=== PATIENT | female | born 1960 | race Caucasian/White ===

== ENCOUNTER → 2016-11-23 | Outpatient (CLI) | payer BC ==
--- NOTE | 2016-11-26 08:36 | MM ---
Reason for exam: screening (asymptomatic). Last mammogram was performed 1 year and 2 months ago. History: Patient is postmenopausal. Taking progesterone for 2 years. Physical Findings: A clinical breast exam by your physician is recommended on an annual basis and results should be correlated with mammographic findings. MG Screening Mammo w CAD Bilateral CC and MLO view(s) were taken. Prior study comparison: September 15, 2015, bilateral MG screening mammo w CAD. March 12, 2014, bilateral MG screening mammo w CAD. There are scattered fibroglandular densities. Finding: There are typically benign round, diffuse and grouped calcifications in both breasts. There is a chronic nodularity bilaterally. There is no discrete abnormality. ASSESSMENT: Benign, BI-RAD 2 RECOMMENDATION: Routine screening mammogram of both breasts in 1 year.
== END | disposition home or self-care (01) ==
LOC: RADMAMWWP 08:01
PROVIDERS: ATTEND Obstetrics & Gynecology
DX: Z12.31 Encounter for screening mammogram for malignant neoplasm of breast (principal)

== ENCOUNTER → 2018-01-17 | Outpatient (CLI) | payer BC ==
--- NOTE | 2018-01-20 14:53 | MM ---
Reason for exam: screening (asymptomatic). Last mammogram was performed 1 year and 2 months ago. History: Patient is postmenopausal. Taking progesterone for 2 years. Physical Findings: A clinical breast exam by your physician is recommended on an annual basis and results should be correlated with mammographic findings. MG Screening Mammo w CAD Bilateral CC and MLO view(s) were taken. Prior study comparison: November 23, 2016, bilateral MG screening mammo w CAD. September 15, 2015, bilateral MG screening mammo w CAD. The breast tissue is heterogeneously dense. This may lower the sensitivity of mammography. There is chronic nodularity bilaterally. Focal asymmetry left upper outer quadrant is stable. No significant changes when compared with prior studies. ASSESSMENT: Benign, BI-RAD 2 RECOMMENDATION: Routine screening mammogram of both breasts in 1 year.
== END | disposition home or self-care (01) ==
LOC: RADMAMWWP 07:44
PROVIDERS: ATTEND Obstetrics & Gynecology
DX: Z12.31 Encounter for screening mammogram for malignant neoplasm of breast (principal)
CPT/HCPCS: 77067

== ENCOUNTER → 2019-01-19 | Outpatient (CLI) | payer BC ==
--- NOTE | 2019-01-19 14:31 | MM ---
Reason for exam: screening (asymptomatic). Last mammogram was performed 1 year ago. History: Patient is postmenopausal. Taking progesterone for 2 years. Physical Findings: A clinical breast exam by your physician is recommended on an annual basis and results should be correlated with mammographic findings. MG 3D Screening Mammo W/Cad Bilateral CC and MLO view(s) were taken. Prior study comparison: January 17, 2018, bilateral MG screening mammo w CAD. November 23, 2016, bilateral MG screening mammo w CAD. There are scattered fibroglandular densities. There is chronic nodularity bilaterally. Stable upper outer quadrant focal asymmetry on the left. ASSESSMENT: Benign, BI-RAD 2 RECOMMENDATION: Routine screening mammogram of both breasts in 1 year.
== END | disposition home or self-care (01) ==
LOC: RADMAMWWP 07:51
PROVIDERS: ATTEND Obstetrics & Gynecology
DX: Z12.31 Encounter for screening mammogram for malignant neoplasm of breast (principal)
CPT/HCPCS: 77063; 77067

== ENCOUNTER → 2019-02-10 | Outpatient (CLI) | payer SELFPAY | END | disposition home or self-care (01) | LOC: LABWHC1 07:39 | PROVIDERS: ATTEND Pathology Anatomic Pathology & Clinical Pathology | DX: Z53.9 Procedure and treatment not carried out, unspecified reason (principal) | CPT/HCPCS: 36415 ==

== ENCOUNTER 2019-04-30 07:59 | Day surgery (SDC) | payer BC ==
[2019-04-27 12:07] VITALS: BMI 28.6
[~2019-04-30 07:59] MED LIST: DEXAMETHASONE SOD PHOSPHATE 10 MG/ML 1 ML VIAL IV ONE; HYDROmorphone 0.5 MG/0.5 ML SYRINGE IVP PRN; LACTATED RINGERS 1,000 ML IV SCH; LIDOCAINE 1% 20 ML VIAL (10MG/ML) FOR IV START INTRADERMA PRN; ONDANSETRON 4 MG/2 ML VIAL IVP ONE; Pre Op ABX Message 1 EACH MISC MISCELLANE ONE; SCOPOLAMINE 1.5MG/72HR PATCH TRANSDERM ONE
[2019-04-30] MEDS ORDERED: MIDAZOLAM PF (FBP) 2 MG/2 ML VIAL IVP ONE (09:06)
[2019-04-30] MEDS ORDERED: fentaNYL (PF) 50 MCG/ML 2 ML AMP IVP ONE (09:07)
--- NOTE | 2019-04-30 10:01 | P.ANPRN ---
Procedure Note - Anesthesia - Nerve Block Performed Right Saphenous/Obturator Single Date of Procedure: 04/30/19 Procedure Start Time: 09:05 Procedure Stop Time: 09:15 Location of Patient Procedure: PreOp Indication: Acute Post-Operative Pain Specifically requested for management of pain by DrAddison: Vitor Gilmore Sedation Type: Sedate with meaningful contact maintained Preparation: Sterile Prep Position: Supine Catheter: None Needle Gauge: 20 Ultrasound used to visualize needle placement: Yes Ultrasound used to observe medication spread: Yes Injectate: Other (see comment) (0.25% ropivacaine/0.5% lidocaine 20 mL) Adjunct: Epinephrine (see comment for dilution ratio) (1:200,000) Blood Aspirated: No Pain Paresthesia on Injection Noted: No Resistance on Injection: Normal Image Stored and Saved: Yes Events: Uneventful and Well Tolerated
--- NOTE | 2019-04-30 10:02 | P.ANPRN ---
Procedure Note - Anesthesia - Nerve Block Performed Right Popliteal Single Time Out Performed: Yes Date of Procedure: 04/30/19 Procedure Start Time: 09:05 Procedure Stop Time: 09:15 Location of Patient Procedure: PreOp Indication: Acute Post-Operative Pain Specifically requested for management of pain by DrAddison: Vitor Gilmore Sedation Type: Sedate with meaningful contact maintained Preparation: Sterile Prep Position: Left Lateral Catheter: None Needle Types: Pajunk Needle Gauge: 21 Ultrasound used to visualize needle placement: Yes Ultrasound used to observe medication spread: Yes Injectate: Other (see comment) (0.25% ropivacaine/0.5% lidocaine 20 mL) Adjunct: Epinephrine (see comment for dilution ratio) (1:200,000) Blood Aspirated: No Pain Paresthesia on Injection Noted: No Resistance on Injection: Normal Image Stored and Saved: Yes Events: Uneventful and Well Tolerated
[2019-04-30] MEDS ORDERED: SUCCINYLCHOLINE CHLORIDE 100 MG/5 ML SYR IV ONE (11:08)
[2019-04-30] MEDS ORDERED: PHENYLEPHRINE-0.9% NACL SYG 1 MG/10 ML SYRINGE ONE (11:08)
[2019-04-30] MEDS ORDERED: LIDOCAINE 1% INJ 10MG/ML (20 ML MDV) ONE (11:08)
[2019-04-30] MEDS ORDERED: PROPOFOL 10 MG/ML 20 ML VIAL IV ONE (11:08)
[2019-04-30] MEDS ORDERED: LIDOCAINE 2%-EPI 1:100,000 20 ML VIAL ONE (11:08)
[2019-04-30] MEDS ORDERED: MIDAZOLAM 2 MG/2 ML VIAL ONE (11:08)
[2019-04-30] MEDS ORDERED: ROPIVACAINE 5 MG/ML 30 ML VIAL ONE (11:08)
[2019-04-30] MEDS ORDERED: fentaNYL (PF) 50 MCG/ML 2 ML AMP ONE (11:08)
[2019-04-30] MEDS ORDERED: LACTATED RINGERS 1,000 ML IV ONE (13:28)
--- NOTE | 2019-04-30 14:05 | P.OP ---
Date of Procedure: 04/30/19 Preoperative Diagnosis: 1. Right hypermobile hallux valgus 2. Right hallux valgus interphalangeus Postoperative Diagnosis: Same Procedure(s) Performed: 1. Right triplanar first tarsometatarsal arthrodesis for correction of first ray instability 2. Correction of right hallux valgus with modified Zapata 3. Correction of right hallux valgus interphalangeus with Lionel osteotomy 4. Application of short leg splint by physician, right leg Anesthesia: SYLVIEA Surgeon: Vitor Gilmore Orthopedic Shoe Maker #1: Juli Goldberg Estimated Blood Loss (ml): 15 IV fluids (ml): 1,500 Pathology: none sent Condition: stable Disposition: PACU Indications for Procedure: The patient is very pleasant. His healthy 58-year-old female who presented to my office with a symptomatic right hallux valgus that had failed over 6 months of nonsurgical treatment. She came requesting surgery. After reviewing her physical exam and imaging my recommendation was to correct her hallux valgus with a modified Lapidus type procedure and Lionel osteotomy. We discussed the potential risks and complications of surgery including but not limited to risk of anesthesia, superficial infection, deep infection, delayed wound healing, superficial wound necrosis, deep wound necrosis, nonunion of the fusion site, malunion to the fusion site, over correction of the deformity, under correction of the deformity, recurrence, DVT, PE, other medical complications, generalized to satisfaction with surgery, need for further surgery, somatic hardware, and possibly loss of life or limb. The patient voiced understanding of these potential complications and provided her verbal and written consent to go forward with surgery. Description of Procedure: The patient was then verified and prepped with holding and the right leg was marked with my initials. I reviewed the consent form with the patient and her . All of their questions were answered. The patient was then given a block by anesthesia. She was brought back to the operating room. She was positioned on the OR table where general anesthetic and preoperative antibiotics were given. A bump was placed on the right buttock. The left leg was secured to the table with foam and tape. The right leg was then prepped and draped in the standard sterile fashion. Prior to starting surgery timeout was performed identifying the correct patient, operative extremity, and procedure. The patient's leg was then elevated, exsanguinated with an Esmarch bandage, and the tourniquet was inflated to 250 mmHg. I began by outlining a straight longitudinal incision starting at the proximal pole of the medial cuneiform and extending to the midshaft of the first metatarsal. Skin incision was made with a scalpel. Dissection was carried down carefully to the subcutaneous tissue with tenotomy scissors. The EHL tendon sheath was incised and the tendon was retracted laterally. The dorsal and medial capsule of the first tarsometatarsal joint was elevated. A saw was used to plane the first metatarsal base to allow for rotation. The capsule was reduced plantarly with an osteotome. A joystick K wire was placed in the 2 o'clock position 1 cm distal to the joint. Attention was then turned to the first webspace. A longitudinal incision was made and dissection was carried down carefully to the subcu tissue. The lateral capsule and sesamoid suspensory ligament were sharply released. A varus force was applied to the toe. Fluoroscopy was then brought in and I verified that the intermetatarsal angle could be closed down and the sesamoids covered by the metatarsal head with rotation of the joystick pin and gentle pressure distally on the first metatarsal. I then placed a 2.5 mm fulcrum at the lateral base the first metatarsal. A stab incision was made over the midshaft of the second metatarsal. The positioner was placed with 1 glen over the lateral cortex of the second metatarsal and the other glen over the medial border of the first metatarsal. An marketing operations assistant rotated the joystick pin and I gently tightened the positioner. Clinically the toe straightened. Fluoroscopy was used to verify that the intermetatarsal angle had been corrected. A K wire was placed through the positioner holding the reduction. A joint seeker was placed as far laterally as possible tarsometatarsal joint. The joint seeker "made a corner" with the fulcrum. A low angle cut guide was placed over the joint seeker and its position was verified with fluoroscopy. Bicortical pins were placed proximally and distally. An oblique pin was placed through the medial cuneiform. The joint seeker was removed and fluoroscopy was used to take a picture "down the gunsight" verifying flat cut off the first metatarsal base and a cut of the medial cuneiform her all to the second tarsometatarsal joint. Once I was happy with the position of the cut guide a microsagittal saw was used to make the cuts at the first metatarsal base and medial cuneiform. The bone was removed. The wound was thoroughly irrigated. Both cuts appeared flat. The cut surfaces the bone were perforated with a 20 drill bit. The compression device was then gently tightened. A 1 mm bumper was placed laterally as the joint was compressed. Clinically the joint appeared to be completely compressed and I was not able to place a [place] and the cut surfaces of the bone. An oblique olive tipped K wire was placed laterally across the joint. I then placed the medial plate. The compression device was then removed and the dorsal plate was placed as far laterally as possible. Attention was then turned distally. On inspection the patient's big toe was still touching the second toe. X-rays showed reduction of the intermetatarsal space but continued deformity due to hallux valgus interphalangeus. A longitud inal incision was made centered over the medial eminence the first MTP joint. The capsule was incised. Conservative medial eminence resection was performed taking care to stay medial to the sulcus. A K wire was placed through the base of the proximal phalanx parallel and distal to the joint. The joint was assessed verifying that the K wire was not intra-articular. A microsagittal saw was then used to create a transverse cut just distal to the K wire taking care to leave the lateral cortex intact. An oblique cut was then made distally creating a closing wedge. The osteotomy was closed, pinned, and secured with a cannulated 2.5 mm headless compression screw which generated excellent purchase. Clinically the toe appeared straight. Final fluoroscopic images were taken. The AP view showed reduction of the intermetatarsal angle, correction of the sesamoids, and correction of the hallux valgus interphalangeus. Both wounds were thoroughly irrigated and closed in layers. A sterile dressing was applied. The drapes were taken down and a well-padded bulky Gillis splint was placed with the ankle at neutral. The patient was awoken from her anesthetic transferred from the OR table and brought to recovery entire procedure well. Juli Chun PA-C was required as a skilled marketing operations assistant for patient positioning, surgical exposure, retraction, closure of wounds, application of splint.
[2019-04-30 14:09] VITALS: RESP 16; TEMP 97
--- NOTE | 2019-04-30 14:11 | FL ---
EXAMINATION TYPE: FL guidance operating room, XR foot limited RT DATE OF EXAM: 04/30/2019 CLINICAL HISTORY: Fluoroscopic documentation during right foot surgery TECHNIQUE: Fluoroscopy. COMPARISON: None. FINDINGS: Fluoroscopic guidance was provided during procedure performed by Dr. Gilmore. A total of 1 minute and 6 seconds of fluoroscopic time was utilized during the procedure and 4 spot images was acquired. IMPRESSION: As Above.
[2019-04-30 15:54] VITALS: BP 131/70; PULSE 75
== END 2019-04-30 16:28 | disposition home or self-care (01) ==
LOC: OR 07:59
PROVIDERS: ATTEND Orthopaedic Surgery
DX: M20.11 Hallux valgus (acquired), right foot (principal); M21.621 Bunionette of right foot; M21.622 Bunionette of left foot; K21.9 Gastro-esophageal reflux disease without esophagitis
CPT/HCPCS: 28298; 64450; 64445; 76942; 73620; 28740; C1713; J2250 ×2; J1100; J0690; J2405; J2001; J3010; J2795; J2370; J0330; J2704; J1170

== ENCOUNTER → 2020-07-01 | Outpatient (CLI) | payer BC ==
--- NOTE | 2020-07-05 08:32 | MM ---
Reason for exam: screening (asymptomatic). Last mammogram was performed 1 year and 5 months ago. History: Patient is postmenopausal. Took progesterone for 2 years. Physical Findings: A clinical breast exam by your physician is recommended on an annual basis and results should be correlated with mammographic findings. MG Screening Mammo w CAD Bilateral CC and MLO view(s) were taken. Prior study comparison: January 19, 2019, bilateral MG 3d screening mammo w/cad. January 17, 2018, bilateral MG screening mammo w CAD. There are scattered fibroglandular densities. There is chronic nodularity bilaterally. Global asymmetry lateral left breast. No significant changes when compared with prior studies. ASSESSMENT: Benign, BI-RAD 2 RECOMMENDATION: Routine screening mammogram of both breasts in 1 year.
== END | disposition home or self-care (01) ==
LOC: RADMAMWWP 13:20
PROVIDERS: ATTEND Obstetrics & Gynecology
DX: Z12.31 Encounter for screening mammogram for malignant neoplasm of breast (principal)
CPT/HCPCS: 77067

== ENCOUNTER → 2021-07-17 | Outpatient (CLI) | payer BC ==
--- NOTE | 2021-07-17 11:19 | MM ---
Reason for exam: screening (asymptomatic). Last mammogram was performed 1 year and 1 month ago. History: Patient is postmenopausal. Took progesterone for 2 years. Physical Findings: A clinical breast exam by your physician is recommended on an annual basis and results should be correlated with mammographic findings. MG Screening Mammo w CAD Bilateral CC and MLO view(s) were taken. Prior study comparison: July 01, 2020, bilateral MG screening mammo w CAD. January 19, 2019, bilateral MG 3d screening mammo w/cad. There are scattered fibroglandular densities. There are benign appearing round calcifications bilaterally. There is chronic nodularity bilaterally. There is no discrete abnormality. ASSESSMENT: Benign, BI-RAD 2 RECOMMENDATION: Routine screening mammogram of both breasts in 1 year.
== END | disposition home or self-care (01) ==
LOC: RADMAMWWP 09:17
PROVIDERS: ATTEND Obstetrics & Gynecology
DX: Z12.31 Encounter for screening mammogram for malignant neoplasm of breast (principal); Z78.0 Asymptomatic menopausal state
CPT/HCPCS: 77067

== ENCOUNTER → 2022-04-06 | Outpatient (CLI) | payer BC ==
--- NOTE | 2022-04-06 12:28 | NM ---
EXAMINATION TYPE: NM stress cardiolite complete DATE OF EXAM: 04/06/2022 COMPARISON: NONE HISTORY: R00.0 Tachycardia, R00.2 Palpitations TECHNIQUE: After the intravenous administration of 9.7 mCi Tc 99m Sestamibi - Rest images obtained 6 0 minutes post injection. The patient exercised using a SAL protocol and 1 minute prior to peak e xercise was injected with 25 mCi Tc 99m Sestamibi - Stress images obtained 20 minutes post injection. FINDINGS: Targeted heart rate was achieved during performance of the study. Review of stress and rest SPECT rolando ges demonstrates no distinct perfusion abnormality. Gated analysis shows normal wall motion with an estimated left ventricular ejection fraction of 63 %. IMPRESSION: No scintigraphic evidence for reversible ischemia
--- NOTE | 2022-04-06 18:12 | CA ---
Exercise Stress Test Report Name: Dyan Song Exam Date: 04/06/2022 10:00 Exam Location: [facility] Stress Ht (in): 64 Wt (lb): 160 BSA: 1.78 Ordering Phys: Malgorzata El MD Referring Phys: Nichole Nicolas Technologist: Bean Jones Age: 61 Gender: F : 1960 Procedure CPT: Indications: R00.0 Tachycardia, R00.2 Palpitations ICD-10 Codes: Patient History: Palpitations and short of breath with family history of heart disease. Medications: Meds past 24 hrs: Pretest Chest Pain: STRESS TEST [place] Protocol Exercise Duration (min:sec): 10:[address] Depressions (mm): Angina Score: Shore Score: Resting HR (bpm): 62 Peak HR (bpm): 147 Resting BP (mmHg): 128 / 80 Peak BP (mmHg): 156 / 89 MPHR: 157 Target HR: 133 % MPHR: 94 METS: 12.1 Total Dose: Peak Dose: Atropine: Double Product: 61524 BP Response: Stress Termination: Reached target heart rate Stress Symptoms: No chest pain or symptoms Stress Summary: ECG ANALYSIS Resting ECG: Stress ECG: CONCLUSIONS Baseline EKG revealed normal sinus rhythm without significant ST and T-wave changes. Patient walked on a standard [place] protocol for a total duration of 10 minutes 25 seconds and achieved a maximum heart rate of 147 bpm which is more than 85% of predicted maximum. He did not have any angina or arrhythmia. EKG did not reveal any ST segment changes to indicate ischemia. By EKG criteria this is a negative stress test with excellent exercise capacity. The nuclear scan results which are more pertinent will be reported by the radiologist Dr. Geetha Mcdonald MD (Electronically Signed) Final Date: 06 April 2022 18:11
== END | disposition home or self-care (01) ==
LOC: RADNMMAIN 04-03 08:20
PROVIDERS: ATTEND Family Medicine
DX: Z53.9 Procedure and treatment not carried out, unspecified reason (principal)
CPT/HCPCS: 78452; 93017

== ENCOUNTER → 2022-07-19 | Outpatient (CLI) | payer BC ==
--- NOTE | 2022-07-20 09:12 | MM ---
Reason for Exam: Screening (asymptomatic). Last screening mammogram was performed 12 month(s) ago. Patient History: Menarche at age 11. First Full-Term at age 24. Postmenopausal. Patient used Progesterone for 2 years. Risk Values: Nataliia 5 year model risk: 1.7%. NCI Lifetime model risk: 7.4%. Prior Study Comparison: 01/19/2019 Bilateral Screening Mammogram, [facility]. 07/01/2020 Bilateral Screening Mammogram, [facility]. 07/17/2021 Bilateral Screening Mammogram, [facility]. Tissue Density: There are scattered fibroglandular densities. Findings: Analyzed By CAD. A few small well-circumscribed masses throughout the bilateral breasts are redemonstrated. A few tiny benign-appearing round calcifications are redemonstrated. There is no suspicious new group of microcalcifications or new suspicious mass in either breast. Overall Assessment: Benign, BI-RAD 2 Management: Screening Mammogram of both breasts in 1 year. A clinical breast exam by your physician is recommended on an annual basis and results should be correlated with mammographic findings. Electronically signed and approved by: Tru Pino M.D.
== END | disposition home or self-care (01) ==
LOC: RADMAMWWP 10:03
PROVIDERS: ATTEND Obstetrics & Gynecology
DX: Z12.31 Encounter for screening mammogram for malignant neoplasm of breast (principal); Z78.0 Asymptomatic menopausal state
CPT/HCPCS: 77067

== ENCOUNTER → 2023-08-23 | Outpatient (CLI) | payer BC ==
--- NOTE | 2023-08-23 09:08 | BD ---
EXAMINATION TYPE: Axial Bone Density DATE OF EXAM: 08/23/2023 CLINICAL HISTORY: 62 years old Female. ICD-10 CODE: Z78.0MENOPAUSAL STATE Height: 62.7 in Weight: 172 lbs EXAM MEASUREMENTS: Bone mineral densitometry was performed using the rocket staff System. Bone mineral density as measured about the Lumbar spine is: ----- L1-L4(G/cm2): 1.239 T Score Values are as follows: ----- L1: -0.1 ----- L2: 0.3 ----- L3: 0.6 ----- L4: 0.7 ----- L1-L4: 0.5 Z Score Values are as follows: ----- L1: 1.1 ----- L2: 1.5 ----- L3: 1.7 ----- L4: 1.8 ----- L1-L4: 1.6 Bone mineral density has: Increased 1.6% since study of: 09/27/2014 Bone mineral density about the R hip (g/cm2): 0.979 Bone mineral density about the L hip (g/cm2): 0.993 T Score values are as follows: -----R Neck: -1.3 -----L Neck: -1.1 -----R Total: -0.2 -----L Total: -0.1 Z Score values are as follows: -----R Neck: -0.1 -----L Neck: 0.1 -----R Total: 0.6 -----L Total: 0.8 Bone mineral density has: Decreased -7.7% since study of: 09/27/2014 FRAX%s: The graph provided illustrates a 8.1% chance for a major osteoporotic fx and a 0.7% chance fo r the hips probability for fx in 10 years time. IMPRESSION: Osteopenia (T Score between -2.5 and -1). There is slightly increased risk of fracture and the patient may be considered for treatment. Re-Screen 2-5 years. NOTE: T-SCORE=SD OF THE YOUNG ADULT MEAN.
--- NOTE | 2023-08-26 09:23 | MM ---
Reason for Exam: Screening (asymptomatic). Last mammogram was performed 1 year(s) and 1 month(s) ago. Patient History: Menarche at age 11. First Full-Term at age 24. Postmenopausal. Patient used Progesterone for 2 years. Risk Values: Nataliia 5 year model risk: 1.8%. NCI Lifetime model risk: 7.2%. Prior Study Comparison: 07/01/2020 Bilateral Screening Mammogram, [facility]. 07/17/2021 Bilateral Screening Mammogram, [facility]. 07/19/2022 Bilateral MG screening mammo w CAD, [facility]. Tissue Density: The breast tissue is almost entirely fat. Findings: Analyzed By CAD. There is no suspicious group of microcalcifications or new suspicious mass in either breast. Overall Assessment: Benign, BI-RAD 2 Management: Screening Mammogram of both breasts in 1 year. . Patient should continue monthly self-breast exams. A clinical breast exam by your physician is recommended on an annual basis. This exam should not preclude additional follow-up of suspicious palpable abnormalities. Note on Nataliia scores and lifetime risk: 1. A Nataliia score greater than 3% is considered moderate risk. If this is the case, consider specialist referral to assess eligibility for a risk reducing agent. 2. If overall lifetime risk for the development of breast cancer is 20% or higher, the patient may qualify for future screening with alternating mammogram and breast MRI. Electronically signed and approved by: Get Paredes M.D. Radiologis
== END | disposition home or self-care (01) ==
LOC: RADMAMWWP 08:18
PROVIDERS: ATTEND Family Medicine
DX: Z12.31 Encounter for screening mammogram for malignant neoplasm of breast (principal); M85.89 Other specified disorders of bone density and structure, multiple sites; Z78.0 Asymptomatic menopausal state
CPT/HCPCS: 77067; 77080

== ENCOUNTER → 2024-06-18 | Outpatient (CLI) | payer BC ==
--- NOTE | 2024-06-18 11:35 | FL ---
EXAMINATION TYPE: FL barium swallow DATE OF EXAM: 06/18/2024 9:19 AM COMPARISON: 11/24/2014 CLINICAL INDICATION:Female, 63 years old with history of R13.13 DYSPHAGIA, PHARYNGEAL PHASE; PHH, TECHNIQUE: The procedure was explained and patient history elicited. All patient questions were ans wered prior to start of procedure. Multiple spot fluoroscopic images of the esophagus were obtained a fter the oral ingestion of effervescent crystals and liquid barium as the contrast agent. Fluoroscopic time:1 min 50 sec Fluoroscopic images:0 Radiographs taken: 117 DAP: Not reported [id number] FINDINGS: The esophagus demonstrates normal primary and secondary peristalsis. Tertiary contractions are seen w ith delayed emptying of the esophageal contents. Small hiatal hernia present. The esophageal mucosa i s smooth without evidence of focal stricture, ulceration, or abnormal outpouching. No gastroesophage al reflux disease was identified IMPRESSION: Esophageal dysmotility. Small hiatal hernia. [facility], , 06/18/2024 11:33 AM
== END | disposition home or self-care (01) ==
LOC: RADFLMAIN 08:25
PROVIDERS: ATTEND Family Medicine
DX: R13.13 Dysphagia, pharyngeal phase (principal); K22.4 Dyskinesia of esophagus; K44.9 Diaphragmatic hernia without obstruction or gangrene
CPT/HCPCS: 74220